=== PATIENT | female | born 1955 | race Caucasian/White ===

== ENCOUNTER 2018-11-07 13:30 | Inpatient (IN) | payer OTHER ==
[~2018-11-07] VITALS: Ht 160 cm; Wt 58.5 kg
[2018-11-11] MEDS ORDERED: LEVO-T88 MCG PO (11:19)
[2018-11-11] MEDS ORDERED: COZAAR50 MG PO (11:20)
[2018-11-11] MEDS ORDERED: ZIAC 10/6.25 MG1 TAB PO (11:20)
[2018-11-17] MEDS ORDERED: OXYC1TAB9 PO (15:01)
[2018-11-17] MEDS ORDERED: INTESTINEX680 M1 PO (15:02)
== END 2018-11-17 16:17 | disposition home or self-care (01) | DRG 331 ==
LOC: O/R 11-14 07:31 → SURH 11-14 13:30
PROVIDERS: ADMIT Surgery
PROC: 0DTP4ZZ Resection of Rectum, Percutaneous Endoscopic Approach (ICD-10-PCS; 2018-11-14)
PROC: 07TC4ZZ Resection of Pelvis Lymphatic, Percutaneous Endoscopic Approach (ICD-10-PCS; 2018-11-14)
PROC: 0UB94ZZ Excision of Uterus, Percutaneous Endoscopic Approach (ICD-10-PCS; 2018-11-14)
PROC: 0DQN4ZZ Repair Sigmoid Colon, Percutaneous Endoscopic Approach (ICD-10-PCS; principal; 2018-11-14 14:00)
DX: C20 Malignant neoplasm of rectum (principal); R59.0 Localized enlarged lymph nodes; Z43.3 Encounter for attention to colostomy; D25.2 Subserosal leiomyoma of uterus; I11.9 Hypertensive heart disease without heart failure; E03.8 Other specified hypothyroidism; R73.01 Impaired fasting glucose

== ENCOUNTER 2020-11-16 06:30 | Day surgery (SDC) | payer OTHER ==
[~2020-11-16 06:30] MED LIST: COZAAR50 MG PO; INTESTINEX680 M1 PO; LEVO-T88 MCG PO; OXYC1TAB9 PO; ZIAC 10/6.25 MG1 TAB PO
== END 2020-11-16 12:20 | disposition home or self-care (01) ==
LOC: AMB-ENDOS 06:30
PROVIDERS: ATTEND Surgery
DX: K62.89 Other specified diseases of anus and rectum (principal); Z93.3 Colostomy status; Z20.822 Contact with and (suspected) exposure to COVID-19